=== PATIENT | male | born 1955 | race Caucasian/White ===

== ENCOUNTER 2017-08-19 16:10 | Emergency (ER) | payer BC, OTHER ==
[2017-08-19 16:55] LABS: BASOPHILS % (AUTO) 0.7 %; EOSINOPHILS # (AUTO) 0.1 10^3/uL (0.0-0.7); EOSINOPHILS % (AUTO) 2.2 %; HGB - HEMOGLOBIN 15.3 g/dL (14.0-18.0); LYMPHOCYTES # (AUTO) 1.3 10^3/uL (1.5-3.5); MEAN CORPUSCULAR HEMOGLOBIN 34.1 pg (27.0-31.0); MEAN CORPUSCULAR HGB CONC 34.1 g/dL (32.0-36.0); MEAN CORPUSCULAR VOLUME 99.9 fL (80.0-94.0); MEAN PLATELET VOLUME 9.7 fL (7.4-11.4); MONOCYTES # (AUTO) 0.4 10^3/uL (0.0-1.0); MONOCYTES % (AUTO) 7.4 %; NEUTROPHILS # (AUTO) 3.7 10^3/uL (1.5-6.6); NEUTROPHILS % (AUTO) 66.7 %; PLT - PLATELET COUNT 86 10^3/uL (130-450); RED BLOOD COUNT 4.48 10^6/uL (4.70-6.10); RED CELL DISTRIBUTION WIDTH 13.4 % (12.0-15.0); WHITE BLOOD COUNT 5.5 x10^3/uL (4.8-10.8)
[2017-08-19 17:09] LABS: ALBUMIN 4.9 g/dL (3.2-5.5); ALBUMIN/GLOBULIN RATIO 1.6 (1.0-2.2); BILIRUBIN,TOTAL 1.1 mg/dL (0.2-1.0); CALCIUM 10.2 mg/dL (8.5-10.3); CREATININE 0.8 mg/dL (0.6-1.2)
[2017-08-19] MEDS ORDERED: diphenhydrAMINE INJ 50 MG/ML VIAL IVP STA (17:15)
--- NOTE | 2017-08-19 17:29 | XRAY Preliminary Report ---
Exam: XR CHEST 1 VIEW X-RAY IMPRESSION: 1. No consolidation or heart failure. [facility] SITE ID: [id number]
--- NOTE | 2017-08-19 17:30 | XRAY Report ---
EXAM: CHEST RADIOGRAPHY EXAM DATE: 08/19/2017 04:55 PM. CLINICAL HISTORY: Chest pain. Productive cough. COMPARISON: None. TECHNIQUE: 1 view. FINDINGS: Lungs/Pleura: No focal opacities or vascular congestion. Mildly prominent lung markings, nonspecific for age. No pleural effusion or pneumothorax. Mediastinum: Normal heart size and superior mediastinal contour. Other: Slightly elevated right hemidiaphragm. No fracture evident. IMPRESSION: 1. No consolidation or heart failure. [facility] Referring Provider Line: [phone] SITE ID: [id number]
--- NOTE | 2017-08-19 17:34 | ED Physician Documentation ---
History of Present Illness - Stated complaint Stated Complaint: DIFF BREATHING/COUGH/ELEV HB - Chief complaint Chief Complaint: Neuro - History obtained from History obtained from: Patient, Family - History of Present Illness Timing: Other (has been coughing for a few days.) Pain level max: 0 Pain level now: 0 - Additonal information Additional information: Patient is a 62 year old male with a history of alcoholism who presents with anxiety today. States he feels restless and anxious. Drinks 8-10 ounces of scotch per day. Has gone through withdrawals in the past and was admitted for 9 days in restraints. Is not currently in withdrawals. Denies chest pain or shortness of breath. States ativan made him go crazy in the ICU for 9 days. Review of Systems Ten Systems: 10 systems reviewed and negative Constitutional: denies: Fever, Chills Nose: denies: Rhinorrhea / runny nose, Congestion Throat: denies: Sore throat Cardiac: denies: Chest pain / pressure Respiratory: reports: Dyspnea (Patient states he felt short of breath earlier with coughing) GI: denies: Abdominal Pain, Nausea, Vomiting, Diarrhea Skin: denies: Rash Musculoskeletal: denies: Neck pain, Back pain Neurologic: denies: Focal weakness, Numbness, Headache Psychiatric: reports: Anxiety. denies: Depressed, Suicidal, Hallucinations PD PAST MEDICAL HISTORY - Past Medical History Cardiovascular: Hypertension, High cholesterol Respiratory: None Neuro: None Endocrine/Autoimmune: None GI: Colon polyps : None HEENT: None Psych: Depression, Claustrophobia Musculoskeletal: None Derm: Psoriasis - Past Surgical History General: Colonoscopy Ortho: Other HEENT: Tonsil/Adenoidectomy - Present Medications Home Medications: Ambulatory Orders Medication Instructions Recorded Confirmed Lisinopril 40 mg PO DAILY 07/05/14 04/02/17 Atorvastatin [Lipitor] 10 mg PO DAILY 03/15/15 04/02/17 Diltiazem HCl [Cartia Xt] 240 mg PO DAILY 03/15/15 04/02/17 Paroxetine HCl [Paxil] 40 mg PO DAILY 03/15/15 04/02/17 - Allergies Allergies/Adverse Reactions: Allergies Allergy/AdvReac Type Severity Reaction Status Date / Time Sulfa (Sulfonamide Allergy Rash Verified 07/05/14 10:37 Antibiotics) lorazepam [From Ativan] AdvReac Hallucinati Verified 07/05/14 10:37 ons - Social History Does the pt smoke?: No Smoking Status: Never smoker Substance Use and Type: Marijuana PD ED PE NORMAL - Vitals Vital signs reviewed: Yes - General General: Alert and oriented X 3, No acute distress - HEENT HEENT: PERRL, Moist mucous membranes - Neck Neck: Supple, no meningeal sign - Cardiac Cardiac: RRR, No murmur, Strong equal pulses - Respiratory Respiratory: No respiratory distress, Clear bilaterally - Abdomen Abdomen: Soft, Non tender, Non distended - Derm Derm: Warm and dry - Extremities Extremities: No edema, No calf tenderness / cord - Neuro Neuro: Alert and oriented X 3, 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, No motor deficit, No sensory deficit - Psych Psych: Normal mood, Normal affect Results - Vitals Vitals: Vital Signs - 24 hr 08/19/17 08/19/17 16:12 18:04 Temperature 36.4 C L 36.7 C Heart Rate 115 H 84 Respiratory 18 18 Rate Blood Pressure 143/103 H 141/92 H O2 Saturation 98 98 Oxygen O2 Source Room air - EKG (time done) 1617 Rate: Rate (enter#) (113) Rhythm: Sinus tachycardia [place]: Normal Intervals: Normal [place] QRS: Normal Ischemia: Normal ST segments, Q waves (III) - Labs Labs: Laboratory Tests 08/19/17 08/19/17 08/19/17 16:41 16:41 16:41 WBC 5.5 RBC 4.48 L Hgb 15.3 Hct 44.8 MCV 99.9 H MCH 34.1 H MCHC 34.1 RDW 13.4 Plt Count 86 L MPV 9.7 Neut # 3.7 Lymph # 1.3 L [place] # 0.4 Eos # 0.1 Baso # 0.0 Absolute Nucleated RBC 0.01 Nucleated RBC % 0.1 Sodium 138 Potassium 3.7 Chloride 103 Carbon Dioxide 22 Anion Gap 13.0 BUN 15 Creatinine 0.8 Estimated GFR (MDRD) 98 Glucose 131 H Calcium 10.2 Total Bilirubin 1.1 H AST 103 H ALT 72 H Alkaline Phosphatase 64 Troponin I < 0.04 Total Protein 8.0 Albumin 4.9 Globulin 3.1 Albumin/Globulin Ratio 1.6 Lipase 35 - Rads (name of study) cxr Radiology: Prelim report reviewed, EMP read contemporaneously, See rad report ( normal) PD MEDICAL DECISION MAKING - ED course Complexity details: reviewed results, re-evaluated patient, considered differential (No ST elevation IN, no aortic dissection, no PE, no tension pneumothorax, no aortic aneurysm), d/w patient, d/w family ED course: Patient is a 62-year-old male who presents to the emergency department what appears to anxiety today. He did not react well to benzodiazepines in the past and thus was given a dose of IV Benadryl. Symptoms resolved. Heart rate returned to normal. No acute findings on EKG. Negative troponin greater than 8 hours after symptom onset. No chest pain. We will have him follow-up with his doctor for further care. Patient counseled regarding signs and symptoms for which I believe and urgent re-evaluation would be necessary. Patient with good understanding of and agreement to plan and is comfortable going home at this time This document was made in part using voice recognition software. While efforts are made to proofread this document, sound alike and grammatical errors may occur. Departure - Departure Disposition: 01 Home, Self Care Clinical Impression: Anxiety Condition: Good Instructions: ED Panic Attack Follow-Up: Montez Segal MD [Primary Care Provider] - Within 1 week Comments: Return if you worsen. Your tests are normal today. Discharge Date/Time: 08/19/17 18:10
[2017-08-19 18:05] VITALS: BP 141/92
== END 2017-08-19 18:10 | disposition home or self-care (01) ==
LOC: ED 16:10
DX: F41.9 Anxiety disorder, unspecified (principal); R00.0 Tachycardia, unspecified; I10 Essential (primary) hypertension; E78.00 Pure hypercholesterolemia, unspecified
CPT/HCPCS: 36415; 71045; 80053; 83690; 84484; 85025; 93005; 96374; 99283; J1200

== ENCOUNTER → 2018-03-07 | Outpatient (CLI) | payer BC, OTHER ==
[2018-03-07 19:14] LABS: BASOPHILS % (AUTO) 0.4 %; EOSINOPHILS # (AUTO) 0.1 10^3/uL (0.0-0.7); EOSINOPHILS % (AUTO) 0.7 %; HGB - HEMOGLOBIN 14.8 g/dL (14.0-18.0); LYMPHOCYTES # (AUTO) 1.4 10^3/uL (1.5-3.5); LYMPHOCYTES % (AUTO) 18.7 %; MEAN CORPUSCULAR HEMOGLOBIN 34.3 pg (27.0-31.0); MEAN CORPUSCULAR HGB CONC 33.9 g/dL (32.0-36.0); MEAN CORPUSCULAR VOLUME 101.2 fL (80.0-94.0); MEAN PLATELET VOLUME 10.4 fL (7.4-11.4); MONOCYTES # (AUTO) 0.6 10^3/uL (0.0-1.0); MONOCYTES % (AUTO) 8.4 %; NEUTROPHILS # (AUTO) 5.4 10^3/uL (1.5-6.6); NEUTROPHILS % (AUTO) 71.8 %; PLT - PLATELET COUNT 91 10^3/uL (130-450); RED BLOOD COUNT 4.32 10^6/uL (4.70-6.10); RED CELL DISTRIBUTION WIDTH 13.3 % (12.0-15.0); WHITE BLOOD COUNT 7.5 x10^3/uL (4.8-10.8)
[2018-03-07 19:34] LABS: ALBUMIN 4.3 g/dL (3.2-5.5); ALBUMIN/GLOBULIN RATIO 1.4 (1.0-2.2); ALKALINE PHOSPHATASE 70 IU/L (42-121); ALT ALANINE AMINOTRANSFERASE 31 IU/L (10-60); AST ASPARTATE AMINOTRANSFERASE 39 IU/L (10-42); BILIRUBIN,TOTAL 1.3 mg/dL (0.2-1.0); BUN - BLOOD UREA NITROGEN 14 mg/dL (6-20); CALCIUM 9.8 mg/dL (8.5-10.3); CARBON DIOXIDE - CO2 27 mmol/L (21-32); CHLORIDE 102 mmol/L (101-111); CREATININE 0.9 mg/dL (0.6-1.2); GFR - MDRD 86 (>89); GLUCOSE 122 mg/dL (70-100); SODIUM 138 mmol/L (135-145); TOTAL PROTEIN 7.4 g/dL (6.7-8.2)
== END ==
LOC: LAB.WCP 08:00
PROVIDERS: ATTEND Family Medicine
DX: I10 Essential (primary) hypertension (principal); F10.20 Alcohol dependence, uncomplicated; R94.5 Abnormal results of liver function studies; E78.5 Hyperlipidemia, unspecified; Z12.5 Encounter for screening for malignant neoplasm of prostate; D69.6 Thrombocytopenia, unspecified
CPT/HCPCS: 36415; 80053; 84153; 84443; 85025

== ENCOUNTER 2018-10-13 08:00 | Outpatient (CLI) | payer OTHER ==
[2018-10-13 18:07] LABS: BASOPHILS % (AUTO) 0.8 %; EOSINOPHILS # (AUTO) 0.1 10^3/uL (0.0-0.7); EOSINOPHILS % (AUTO) 2.6 %; HGB - HEMOGLOBIN 15.4 g/dL (14.0-18.0); LYMPHOCYTES # (AUTO) 1.1 10^3/uL (1.5-3.5); LYMPHOCYTES % (AUTO) 20.9 %; MEAN CORPUSCULAR HEMOGLOBIN 32.4 pg (27.0-31.0); MEAN CORPUSCULAR HGB CONC 33.2 g/dL (32.0-36.0); MEAN CORPUSCULAR VOLUME 97.7 fL (80.0-94.0); MEAN PLATELET VOLUME 12.5 fL (7.4-11.4); MONOCYTES # (AUTO) 0.4 10^3/uL (0.0-1.0); MONOCYTES % (AUTO) 8.3 %; NEUTROPHILS # (AUTO) 3.6 10^3/uL (1.5-6.6); PLT - PLATELET COUNT 107 10^3/uL (130-450); RED BLOOD COUNT 4.75 10^6/uL (4.70-6.10); WHITE BLOOD COUNT 5.3 x10^3/uL (4.8-10.8)
[2018-10-13 18:23] LABS: ALBUMIN 4.1 g/dL (3.2-5.5); ALBUMIN/GLOBULIN RATIO 1.4 (1.0-2.2); BILIRUBIN,TOTAL 1.2 mg/dL (0.2-1.0); CALCIUM 9.2 mg/dL (8.5-10.3); CREATININE 0.9 mg/dL (0.6-1.2); TOTAL PROTEIN 7.1 g/dL (6.7-8.2)
== END 2018-10-13 08:01 | disposition home or self-care (01) ==
LOC: LAB.WCP 08:00
PROVIDERS: ATTEND Family Medicine
DX: R10.11 Right upper quadrant pain (principal); Z12.5 Encounter for screening for malignant neoplasm of prostate
CPT/HCPCS: 36415; 80053; 82150; 83690; 84153; 85025

== ENCOUNTER 2018-10-13 11:04 | Outpatient (CLI) | payer OTHER ==
--- NOTE | 2018-10-13 12:32 | XRAY Report ---
Reason: ABDOMINAL PAIN,RIGHT UPPER QUADRANT Procedure Date: 10/13/2018 Accession Number: [id number] / [id number] Procedure: XR - Abdomen Acute CPT Code: FULL RESULT: EXAM: ABDOMINAL SERIES AND PA CHEST EXAM DATE: 10/13/2018 11:56 AM. CLINICAL HISTORY: Abdominal pain, right upper quadrant. COMPARISON: CHEST 1 VIEW 08/19/2017 4:49 PM. TECHNIQUE: 2 views abdomen and 1 view chest. FINDINGS: CHEST: Lungs/Pleura: No focal opacities. No effusion or pneumothorax. Mediastinum: Within exam limitations, cardiomediastinal contour is normal. ABDOMEN: Bowel Gas Pattern: Overall paucity of small bowel gas with gas seen predominantly within the stomach and large bowel. Free Air: None. Other: None. IMPRESSION: Nonobstructive bowel gas pattern. [facility]
== END 2018-10-13 11:05 | disposition home or self-care (01) ==
LOC: DI 11:04
PROVIDERS: ATTEND Family Medicine
DX: R10.11 Right upper quadrant pain (principal); Z12.5 Encounter for screening for malignant neoplasm of prostate
CPT/HCPCS: 36415; 74022; 80053; 82150; 83690; 84153; 85025

== ENCOUNTER 2018-10-15 08:00 | Outpatient (CLI) | payer OTHER ==
[2018-10-15 20:28] LABS: H. PYLORIS ANTIGEN STL NEGATIVE (Negative)
== END 2018-10-15 08:01 | disposition home or self-care (01) ==
LOC: LAB.R 08:00
PROVIDERS: ATTEND Family Medicine
DX: R10.11 Right upper quadrant pain (principal)
CPT/HCPCS: 87338

== ENCOUNTER 2018-10-17 20:41 | Outpatient (CLI) | payer OTHER ==
--- NOTE | 2018-10-18 16:57 | Ultrasound Report ---
Reason: ABDOMINAL PAIN,RIGHT UPPER QUADRANT Procedure Date: 10/17/2018 Accession Number: [id number] / [id number] Procedure: US - Abdomen Limited CPT Code: FULL RESULT: EXAM: ABDOMEN ULTRASOUND LIMITED, RIGHT UPPER QUADRANT EXAM DATE: 10/17/2018 09:35 PM. CLINICAL HISTORY: Abdominal pain, right upper quadrant. COMPARISON: None. TECHNIQUE: Real-time scanning was performed with static images obtained. FINDINGS: Liver: Coarse, heterogeneous hepatic echotexture with nodular contour. Right liver lobe measures 19.6 cm. Multiple liver cysts measure up to 4.3 x 3.2 x 3.0 cm within left liver lobe. Multiple solid hypoechoic liver masses also appear to be present. Within anterior right liver lobe, a solid mass with vascularity measures 3.3 x 2.4 x 3 cm. Two smaller posterior hypoechoic right liver lobe masses are seen. Main portal vein flow: Hepatofugal. Gallbladder: Patient was tender during scanning of the gallbladder. No gallstone. No gallbladder wall thickening. Biliary System: CBD measures 5 mm. No intrahepatic or extrahepatic ductal dilatation. Other: Right kidney measured 11.2 cm longitudinally and showed diffuse renal cortical thinning. No hydronephrosis. Visualized pancreatic body was unremarkable, remainder of pancreas was obscured by overlying bowel gas. No ascites evident. IMPRESSION: 1. Cirrhotic appearing liver containing multiple scattered cysts and several solid masses. Findings could be related to multifocal hepatocellular carcinoma, cholangiocarcinoma or metastatic disease. Recommend further evaluation with contrast-enhanced MRI or CT. 2. Patient was tender during scanning of the gallbladder, however there was no evidence for gallstone or gallbladder wall thickening. 3. Abnormal, hepatofugal flow within portal vein. [facility]
== END 2018-10-17 20:42 | disposition home or self-care (01) ==
LOC: DI 20:41
PROVIDERS: ATTEND Family Medicine
DX: R10.11 Right upper quadrant pain (principal); K76.89 Other specified diseases of liver
CPT/HCPCS: 76705

== ENCOUNTER 2018-10-21 13:42 | Outpatient (CLI) | payer OTHER ==
[2018-10-21] MEDS ORDERED: IOVERSOL 320 100 ML VIAL IVP ONE ×2 (14:23→16:14)
--- NOTE | 2018-10-22 14:29 | CT Report ---
Reason: ABDOMINAL PAIN, RIGHT UPPER QUAD, ABNORMAL USD Procedure Date: 10/21/2018 Accession Number: [id number] / [id number] Procedure: CT - ABDOMEN W/WO CPT Code: FULL RESULT: EXAM: CT LIVER WITHOUT AND WITH CONTRAST EXAM DATE: 10/21/2018 02:56 PM. CLINICAL HISTORY: ABDOMINAL PAIN, RIGHT UPPER QUAD, ABNORMAL USD. COMPARISONS: ABDOMEN LIMITED 10/17/2018 8:56 PM. TECHNIQUE: Routine multiphase liver CT before and after the administration of IV contrast. IV contrast: OPTI 320 100ML. Enteric contrast: None. Reconstructions: Coronal and sagittal. In accordance with CT protocol optimization, one or more of the following dose reduction techniques were utilized for this exam: automated exposure control, adjustment of mA and/or KV based on patient size, or use of iterative reconstructive technique. FINDINGS: Lung Bases: Clear lung bases. No effusion. At least 3 vessel coronary artery calcification. Liver: Multiple cysts. Irregular contour typical of cirrhosis. The hyperechoic areas on ultrasound appear isodense on precontrast scans and show hyperenhancement initially followed by progressive change to isodensity with the rest of liver parenchyma, most compatible with regenerative nodules. Hemangiomatosis is also a consideration, but believed less likely. Gallbladder/Biliary System: Tiny dependent density may represent a small stone versus a focus of adenomyomatosis. Otherwise unremarkable. No ductal dilation.. Other Solid Organs: Small nonobstructing right renal stone measuring about 2-3 mm. Otherwise unremarkable. No masses or abnormal enhancement. Bowel: The visualized bowel loops are normal. Bones: Normal. Other: None. IMPRESSION: 1. Numerous enhancing hepatic nodules which changed to isodensity with delay, most likely regenerative nodules. Neoplasm is believed unlikely. If clinical suspicion is high, further characterization with MR scan may be helpful. 2. Cirrhosis, multiple hepatic cysts. 3. Possible tiny gallstone versus focus of adenomyomatosis. 4. Small nonobstructing right renal stone. [facility]
== END 2018-10-21 13:43 | disposition home or self-care (01) ==
LOC: DI 13:42
PROVIDERS: ATTEND Family Medicine
DX: K76.89 Other specified diseases of liver (principal); K74.60 Unspecified cirrhosis of liver; R93.3 Abnormal findings on diagnostic imaging of other parts of digestive tract; N20.0 Calculus of kidney
CPT/HCPCS: 74170; Q9967

== ENCOUNTER 2018-10-24 13:56 | Outpatient (CLI) | payer OTHER ==
[2018-10-25 12:41] LABS: HEPATITIS A IGM NON-REACTIVE (NON-REACTIVE); HEPATITIS B CORE ANTIBODY IGM NON-REACTIVE (NON-REACTIVE); HEPATITIS B SURFACE ANTIGEN NON-REACTIVE (NON-REACTIVE); HEPATITIS C ANTIBODY NON-REACTIVE (NON-REACTIVE)
== END 2018-10-24 23:59 | disposition home or self-care (01) ==
LOC: LAB.WCP 13:56
PROVIDERS: ATTEND Family Medicine
DX: K74.60 Unspecified cirrhosis of liver (principal)
CPT/HCPCS: 36415; 80074

== ENCOUNTER 2018-10-28 08:40 | Outpatient (CLI) | payer OTHER ==
[2018-10-28] MEDS ORDERED: GADOBUTROL 10 MMOL/10 ML VIAL ONE (09:15)
[2018-10-28] MEDS ORDERED: GADOBUTROL 10 MMOL/10 ML VIAL IVP ONE (10:30)
--- NOTE | 2018-10-29 11:21 | MRI Report ---
Reason: CIRRHOSIS Procedure Date: 10/28/2018 Accession Number: [id number] / [id number] Procedure: MRI - Abdomen W/WO CPT Code: FULL RESULT: EXAM: MR ABDOMEN WITH AND WITHOUT CONTRAST LIVER MASS PROTOCOL EXAM DATE: 10/28/2018 10:32 AM. CLINICAL HISTORY: Cirrhosis. COMPARISON: ABDOMEN W/WO 10/21/2018 2:25 PM. TECHNIQUE: Multiplanar breath-hold T1, T2, and DWI sequences obtained through the pancreas and abdomen on an MR scanner. Images obtained before and after administration of 10 mL Gadavist intravenous contrast. Multiphase postcontrast sequences obtained through the liver. FINDINGS: Lung Bases: Unremarkable. Liver: Liver demonstrates a cirrhotic configuration and is again demonstrated to contain multiple cysts as well as regenerative nodules. There are 2 lesions that are arterially hyperenhancing and hypoenhancing compared to parenchymal background meeting washout criteria. 1.6 x 1.6 cm lesion on image 103 as well as 1.2 x 0.8 cm focal hyperenhancement with questionable corresponding washout as seen centered on image 120. The larger lesion is also demonstrated to contain fat on dual echo and both display the typically associated nonspecific mild signal hyperintensity on T2 sequence. There is a small amount of perihepatic ascites. Retrospectively, both of these nodules also demonstrate arterial hyperenhancement as well as hypoenhancement compared to background parenchyma on the delayed phase on the previous CT study. Gallbladder: The gallbladder is partially distended and appears normal with no wall thickening or stone. Bile Ducts: No intrahepatic or extrahepatic duct dilatation. Pancreas: The pancreas appears normal with no solid enhancing mass. Spleen: The spleen appears normal. Kidneys: The kidneys appear normal with no mass or hydronephrosis. Adrenals: The adrenals appear normal. Bowel: The visualized segments of the small bowel and colon appear normal with no inflammation or obstruction. Retroperitoneum: The retroperitoneal structures appear normal with no mass or lymphadenopathy. Other: None. IMPRESSION: Two right hepatic nodules measuring up to 1.2 and 1.6 cm respectively meet washout criteria for hepatocellular carcinoma, LI-RADS 5. Background cirrhotic liver with regenerative nodules and cysts. [facility]
== END 2018-10-28 08:41 | disposition home or self-care (01) ==
LOC: DI 08:40
PROVIDERS: ATTEND Family Medicine
DX: K74.60 Unspecified cirrhosis of liver (principal); K76.89 Other specified diseases of liver
CPT/HCPCS: 74183; A9585

== ENCOUNTER 2019-01-29 12:46 | Outpatient (CLI) | payer OTHER ==
[2019-01-29 13:04] LABS: INR 1.3 (0.8-1.2); PT - PROTHROMBIN TIME 14.1 secs (9.9-12.6)
[2019-01-29 13:31] LABS: ALBUMIN 2.6 g/dL (3.2-5.5); BILIRUBIN,DIRECT 2.3 mg/dL (0.1-0.5); TOTAL PROTEIN 6.2 g/dL (6.7-8.2)
== END 2019-01-29 12:47 | disposition home or self-care (01) ==
LOC: LAB 12:46
PROVIDERS: ATTEND Internal Medicine
DX: C22.0 Liver cell carcinoma (principal)
CPT/HCPCS: 36415; 80076; 85610

== ENCOUNTER 2019-03-03 15:20 | Outpatient (CLI) | payer OTHER | END 2019-03-03 15:21 | disposition EMS.NT | LOC: EMS 15:20 | PROVIDERS: ATTEND Surgery | DX: R56.9 Unspecified convulsions (principal) ==